=== PATIENT | male | born 1970 | race African-American/Black ===

== ENCOUNTER 2022-01-15 17:10 | Emergency (ER) | payer MEDICARE, SELFPAY ==
--- NOTE | ~2022-01-15 | XR_ITS ---
EXAMINATION: XR CHEST CLINICAL INFORMATION: New onset seizure. COMPARISON: Chest 07/13/2016. TECHNIQUE: Frontal view of the chest was obtained. FINDINGS: No significant abnormality is noted involving the heart, lungs, mediastinum, bony thorax or soft tissues. XR/XR chest 1V IMPRESSION: Unremarkable chest examination.
--- NOTE | ~2022-01-15 | CT_ITS ---
EXAMINATION: CT HEAD WITHOUT CONTRAST CLINICAL INFORMATION: New onset seizure COMPARISON: 07/13/2016 TECHNIQUE: Contiguous axial imaging was performed from the skull base to vertex without intravenous administration of contrast. This CT examination was performed using dose optimization techniques as appropriate, variously including the following: *Automated exposure control *Adjustment of mA and/or kV according to patient size (this includes techniques or standardized protocols for targeted exams where dose is matched to indication/reason for exam; i.e. extremities or head) *Use of iterative reconstruction technique DLP: 1470 mGy-cm FINDINGS: No intra-axial or extra-axial hemorrhage. No acute territorial infarct. Redemonstration of postsurgical changes along with chronic encephalomalacia of the left temporal lobe with expansion of the temporal and posterior horns of the left lateral ventricle. Chronic right frontoparietal infarct. Preservation of douglas-white matter differentiation. No mass, mass effect, or midline shift. No fracture. The mastoid air cells and visualized paranasal sinuses are clear. CT/CT head/brain wo con IMPRESSION: Chronic left temporal lobe infarction with encephalomalacia appears similar to the study dated 07/13/2016. Given the extent of the changes, the possibility of superimposed ischemia is difficult to exclude and MRI could be considered. Postsurgical changes of bitemporal craniotomies. There is a chronic right frontoparietal infarct.
--- NOTE | 2022-01-15 17:16 | ED.SEIZURE ---
HPI - Seizure General Chief Complaint: Stroke Stated Complaint: seizures Source: patient and EMS Mode of arrival: EMS Limitations: altered mental status History of Present Illness HPI Narrative: 51-year-old male presents via EMS for facial twitching, tonic clonic seizure activity, while at a [facility] facility. Patient presents via EMS, on transit from [facility] patient received 2 mg of IM Versed for seizure-like activity. MD complaint: seizure Onset (ago): hour(s) (Within the hour of arrival) Description of Episode: tonic-clonic movement -: second(s) Witnessed: Yes - by Bystander Trauma: No Seizure History: No Place: Home Possible Precipitating Event: none Associated symptoms: denies other symptoms Treatments prior to arrival: benzodiazepines Related Data Allergies Allergy/AdvReac Type Severity Reaction Status Date / Time No Known Allergies Allergy Unverified 06/17/20 19:09 [No Known Allergies*] Review of Systems Review of Systems: Constitutional: Positive seizure activity, No Fever, No Chills ENT/Mouth: No Ear Pain, No Hoarseness, No sore throat Eyes: No Eye Pain, No Swelling, No Redness, No Foreign Body Cardiovascular: No Chest Pain, No SOB Respiratory: No Cough, No Dyspnea Gastrointestinal: No Nausea, No Vomiting, No Diarrhea, No abdominal Pain Genitourinary: No Dysuria, No Hematuria Musculoskeletal: No joint pain, No Myalgias, No Joint Swelling Skin: No Skin lacerations, No rash Neuro: No Weakness, No Numbness, No Paresthesias, No Loss of Consciousness, No Dizziness, No Headache Psych: No Anxiety/Panic, No Depression Heme/Lymph: no easy bruising, no Lymphadenopathy Endocrine: No Polyuria, No Polydipsia Yes all other systems are reviewed and are negative FOR[facility]LY [facility] Past Medical History Attestation statement: The following information was validated with the patient. Source: old records reviewed Social History Social History Advance Directives: No Advance Directives Information Provided: No Physical Exam Vital Signs: Vital Signs: Last Vital Signs Temp 98.7 F 01/15/22 17:21 Pulse 95 01/15/22 22:52 Resp 14 01/15/22 22:52 BP 142/101 H 01/15/22 22:52 Pulse Ox 96 01/15/22 22:52 BMI result Body Mass Index 34.7 Appearance: Alert. Oriented X3. No acute distress. Appears postictal. Eyes: Pupils equal, round and reactive to light. ENT: Pharynx normal. Neck: Normal inspection. Neck supple. CVS: Normal heart rate and rhythm. Pulses normal. Respiratory: No respiratory distress. Breath sounds normal. Abdomen: Soft and nontender. Skin: Skin warm and dry. Normal skin color. Normal skin turgor. Extremities: No lower extremity edema. Moves all extremities against resistance. Right-sided weakness Neuro: No motor deficit. No sensory deficit. Cranial nerves 2-12 intact. Course Course Course Narrative: 51-year-old male presents via EMS from [facility] with tremors consistent with seizure activity. Patient was 2 mg of IM Versed while on transit for seizure activity. Does have history of stroke, encephalomalacia, alcohol-induced amnesia disorder Wernicke encephalopathy, aphasia, hypertension, history of epilepsy, glaucoma, constipation, hyperlipidemia depression, history TBI, type 2 diabetes. At the time of my examination patient is postictal and unable to follow directions. 17:29 sugars 78. Will order amp d5 18:28 lactic 2.6, Mag 1.3, will add 2 L of fluid and 2 g of Mag. At this time patient is following directions. Able to move all extremities without difficulty. Speaking. Sitting up. 19:40 CT scan of head is negative for acute findings requiring emergent intervention. Does show chronic left temporal lobe infarction with encephalomalacia. Postsurgical changes noted a bitemporal craniotomies with chronic right frontoparietal infarct. Patient does have a known seizure disorder I do not feel that MRI is emergent or needed at this time. 21:07 patient is eating without difficulty. Will be transported to [facility] by their facility. 2300 p.m. transportation not available for this patient. He will be boarding in this emergency department until morning. MDM - Seizure Differential Diagnosis Differential diagnosis: Likely intractable seizure disorder and new onset seizure Medical Records Attestation: I reviewed the patient's medical records. Lab Data Attestation: I reviewed the patient's lab results. Result diagrams: 01/15/22 17:47 01/15/22 17:46 Labs: Lab Results 01/15/22 01/15/22 01/15/22 Range/Units 17:29 17:46 17:46 WBC (4.8-10.8) X10*3/uL RBC (4.60-5.80) X10*6/uL Hgb (14.0-18.0) g/dl Hct (42.0-52.0) % MCV (80.0-98.0) fL MCH (27.0-33.0) pg MCHC (31.0-36.0) g/dl RDW (11.0-16.0) % Plt Count (160-400) X10*3/uL MPV (9.4-12.4) fL Immature Gran % (Auto) (0.0-0.4) % Neut % (Auto) (45-73) % Lymph % (Auto) (20-40) % [place] % (Auto) (2-11) % Eos % (Auto) (0-4) % Baso % (Auto) (0-2) % Lymph # (Auto) (1.2-4.9) X10*3/uL [place] # (Auto) (0.1-1.2) X10*3/uL Eos # (Auto) (0.0-0.4) X10*3/uL Baso # (Auto) (0.0-0.2) X10*3/uL Abs Immat Gran (auto) (0.00-0.03) X10*3/uL Absolute Neuts (auto) (2.0-8.3) x10*3/uL Absolute Nucleated RBC (0.0-0.012) X10*3/uL Nucleated RBC % (auto) (0.0-0.2) /100WBC APTT (24.1-38.0) SEC Sodium 140 (135-145) mmol/L Potassium 4.8 (3.3-5.1) mmol/L Chloride 103 (96-108) mmol/L Carbon Dioxide 22 (22-29) mmol/L Anion Gap 20 (12-20) BUN 9 (9-16) mg/dL Creatinine 0.99 (0.5-1.4) mg/dL Estim Creat Clear Calc 85.7 Estimated GFR > 60 POC Glucose 78 (60-115) mg/dL Random Glucose 68 (60-115) mg/dL Lactic Acid 2.6 H* (0.5-2.0) mmol/L Lactic Acid F/U @ 2Hr (0.5-2.0) mmol/L Lactic Acid F/U @ 4Hr (0.5-2.0) mmol/L Calcium 9.5 (8.4-10.2) mg/dL Magnesium 1.3 L* (1.6-2.6) mg/dL Total Bilirubin 0.3 (0.0-1.0) mg/dL Direct Bilirubin < 0.2 (0.0-0.5) mg/dL AST 22 (5-37) U/L ALT 29 (0-40) U/L Alkaline Phosphatase 69 (39-117) U/L Total Creatine Kinase 171 (38-174) U/L Troponin I High Sens (<3.5-35.0) ng/L Total Protein 7.4 (6.5-8.0) g/dL Albumin 4.0 (3.5-5.0) g/dL Lipase 8 (8-78) U/L Urine Color Urine Appearance Urine pH (5.0-8.0) Ur Specific [place] (1.005-1.025) Urine Protein (NEG-TRACE) MG/DL Urine Glucose (UA) (NEG) MG/DL Urine Ketones (NEG) MG/DL Urine Blood (NEG) Urine Nitrite (NEG) Ur Leukocyte Esterase (NEG) Urine Opiates Screen (Not Detect) Urine Fentanyl Screen (Not Detect) Ur Barbiturates Screen (Not Detect) Ur Phencyclidine Scrn (Not Detect) Ur Amphetamines Screen (Not Detect) U Benzodiazepines Scrn (Not Detect) Urine Cocaine Screen (Not Detect) U Marijuana (THC) Screen (Not Detect) Ethyl Alcohol mg/dL Influenza Type A (PCR) (Negative) Influenza Type B (PCR) (Negative) RSV RNA Qual (PCR) (Negative) SARS-CoV-2 RNA (RT-PCR) (Negative) 01/15/22 01/15/22 01/15/22 Range/Units 17:46 17:46 17:46 WBC (4.8-10.8) X10*3/uL RBC (4.60-5.80) X10*6/uL Hgb (14.0-18.0) g/dl Hct (42.0-52.0) % MCV (80.0-98.0) fL MCH (27.0-33.0) pg MCHC (31.0-36.0) g/dl RDW (11.0-16.0) % Plt Count (160-400) X10*3/uL MPV (9.4-12.4) fL Immature Gran % (Auto) (0.0-0.4) % Neut % (Auto) (45-73) % Lymph % (Auto) (20-40) % [place] % (Auto) (2-11) % Eos % (Auto) (0-4) % Baso % (Auto) (0-2) % Lymph # (Auto) (1.2-4.9) X10*3/uL [place] # (Auto) (0.1-1.2) X10*3/uL Eos # (Auto) (0.0-0.4) X10*3/uL Baso # (Auto) (0.0-0.2) X10*3/uL Abs Immat Gran (auto) (0.00-0.03) X10*3/uL Absolute Neuts (auto) (2.0-8.3) x10*3/uL Absolute Nucleated RBC (0.0-0.012) X10*3/uL Nucleated RBC % (auto) (0.0-0.2) /100WBC APTT (24.1-38.0) SEC Sodium (135-145) mmol/L Potassium (3.3-5.1) mmol/L Chloride (96-108) mmol/L Carbon Dioxide (22-29) mmol/L Anion Gap (12-20) BUN (9-16) mg/dL Creatinine (0.5-1.4) mg/dL Estim Creat Clear Calc Estimated GFR POC Glucose (60-115) mg/dL Random Glucose (60-115) mg/dL Lactic Acid (0.5-2.0) mmol/L Lactic Acid F/U @ 2Hr (0.5-2.0) mmol/L Lactic Acid F/U @ 4Hr (0.5-2.0) mmol/L Calcium (8.4-10.2) mg/dL Magnesium (1.6-2.6) mg/dL Total Bilirubin (0.0-1.0) mg/dL Direct Bilirubin (0.0-0.5) mg/dL AST (5-37) U/L ALT (0-40) U/L Alkaline Phosphatase (39-117) U/L Total Creatine Kinase (38-174) U/L Troponin I High Sens < 3.5 (<3.5-35.0) ng/L Total Protein (6.5-8.0) g/dL Albumin (3.5-5.0) g/dL Lipase (8-78) U/L Urine Color Urine Appearance Urine pH (5.0-8.0) Ur Specific [place] (1.005-1.025) Urine Protein (NEG-TRACE) MG/DL Urine Glucose (UA) (NEG) MG/DL Urine Ketones (NEG) MG/DL Urine Blood (NEG) Urine Nitrite (NEG) Ur Leukocyte Esterase (NEG) Urine Opiates Screen (Not Detect) Urine Fentanyl Screen (Not Detect) Ur Barbiturates Screen (Not Detect) Ur Phencyclidine Scrn (Not Detect) Ur Amphetamines Screen (Not Detect) U Benzodiazepines Scrn (Not Detect) Urine Cocaine Screen (Not Detect) U Marijuana (THC) Screen (Not Detect) Ethyl Alcohol < 10 mg/dL Influenza Type A (PCR) NEGATIVE (Negative) Influenza Type B (PCR) NEGATIVE (Negative) RSV RNA Qual (PCR) NEGATIVE (Negative) SARS-CoV-2 RNA (RT-PCR) NEGATIVE (Negative) 01/15/22 01/15/22 01/15/22 Range/Units 17:47 17:47 18:47 WBC 12.0 H (4.8-10.8) X10*3/uL RBC 4.62 (4.60-5.80) X10*6/uL Hgb 11.6 L (14.0-18.0) g/dl Hct 35.6 L (42.0-52.0) % MCV 77.1 L (80.0-98.0) fL MCH 25.1 L (27.0-33.0) pg MCHC 32.6 (31.0-36.0) g/dl RDW 13.5 (11.0-16.0) % Plt Count 216 (160-400) X10*3/uL MPV 12.0 (9.4-12.4) fL Immature Gran % (Auto) 0.2 (0.0-0.4) % Neut % (Auto) 40.1 L (45-73) % Lymph % (Auto) 51.6 H (20-40) % [place] % (Auto) 6.4 (2-11) % Eos % (Auto) 1.5 (0-4) % Baso % (Auto) 0.2 (0-2) % Lymph # (Auto) 6.2 H (1.2-4.9) X10*3/uL [place] # (Auto) 0.8 (0.1-1.2) X10*3/uL Eos # (Auto) 0.2 (0.0-0.4) X10*3/uL Baso # (Auto) 0.0 (0.0-0.2) X10*3/uL Abs Immat Gran (auto) 0.02 (0.00-0.03) X10*3/uL Absolute Neuts (auto) 4.8 (2.0-8.3) x10*3/uL Absolute Nucleated RBC 0.000 (0.0-0.012) X10*3/uL Nucleated RBC % (auto) 0.0 (0.0-0.2) /100WBC APTT 40.5 H (24.1-38.0) SEC Sodium (135-145) mmol/L Potassium (3.3-5.1) mmol/L Chloride (96-108) mmol/L Carbon Dioxide (22-29) mmol/L Anion Gap (12-20) BUN (9-16) mg/dL Creatinine (0.5-1.4) mg/dL Estim Creat Clear Calc Estimated GFR POC Glucose 107 (60-115) mg/dL Random Glucose (60-115) mg/dL Lactic Acid (0.5-2.0) mmol/L Lactic Acid F/U @ 2Hr (0.5-2.0) mmol/L Lactic Acid F/U @ 4Hr (0.5-2.0) mmol/L Calcium (8.4-10.2) mg/dL Magnesium (1.6-2.6) mg/dL Total Bilirubin (0.0-1.0) mg/dL Direct Bilirubin (0.0-0.5) mg/dL AST (5-37) U/L ALT (0-40) U/L Alkaline Phosphatase (39-117) U/L Total Creatine Kinase (38-174) U/L Troponin I High Sens (<3.5-35.0) ng/L Total Protein (6.5-8.0) g/dL Albumin (3.5-5.0) g/dL Lipase (8-78) U/L Urine Color Urine Appearance Urine pH (5.0-8.0) Ur Specific [place] (1.005-1.025) Urine Protein (NEG-TRACE) MG/DL Urine Glucose (UA) (NEG) MG/DL Urine Ketones (NEG) MG/DL Urine Blood (NEG) Urine Nitrite (NEG) Ur Leukocyte Esterase (NEG) Urine Opiates Screen (Not Detect) Urine Fentanyl Screen (Not Detect) Ur Barbiturates Screen (Not Detect) Ur Phencyclidine Scrn (Not Detect) Ur Amphetamines Screen (Not Detect) U Benzodiazepines Scrn (Not Detect) Urine Cocaine Screen (Not Detect) U Marijuana (THC) Screen (Not Detect) Ethyl Alcohol mg/dL Influenza Type A (PCR) (Negative) Influenza Type B (PCR) (Negative) RSV RNA Qual (PCR) (Negative) SARS-CoV-2 RNA (RT-PCR) (Negative) 01/15/22 01/15/22 01/15/22 Range/Units 19:41 19:41 20:51 WBC (4.8-10.8) X10*3/uL RBC (4.60-5.80) X10*6/uL Hgb (14.0-18.0) g/dl Hct (42.0-52.0) % MCV (80.0-98.0) fL MCH (27.0-33.0) pg MCHC (31.0-36.0) g/dl RDW (11.0-16.0) % Plt Count (160-400) X10*3/uL MPV (9.4-12.4) fL Immature Gran % (Auto) (0.0-0.4) % Neut % (Auto) (45-73) % Lymph % (Auto) (20-40) % [place] % (Auto) (2-11) % Eos % (Auto) (0-4) % Baso % (Auto) (0-2) % Lymph # (Auto) (1.2-4.9) X10*3/uL [place] # (Auto) (0.1-1.2) X10*3/uL Eos # (Auto) (0.0-0.4) X10*3/uL Baso # (Auto) (0.0-0.2) X10*3/uL Abs Immat Gran (auto) (0.00-0.03) X10*3/uL Absolute Neuts (auto) (2.0-8.3) x10*3/uL Absolute Nucleated RBC (0.0-0.012) X10*3/uL Nucleated RBC % (auto) (0.0-0.2) /100WBC APTT (24.1-38.0) SEC Sodium (135-145) mmol/L Potassium (3.3-5.1) mmol/L Chloride (96-108) mmol/L Carbon Dioxide (22-29) mmol/L Anion Gap (12-20) BUN (9-16) mg/dL Creatinine (0.5-1.4) mg/dL Estim Creat Clear Calc Estimated GFR POC Glucose (60-115) mg/dL Random Glucose (60-115) mg/dL Lactic Acid (0.5-2.0) mmol/L Lactic Acid F/U @ 2Hr 3.3 H* (0.5-2.0) mmol/L Lactic Acid F/U @ 4Hr (0.5-2.0) mmol/L Calcium (8.4-10.2) mg/dL Magnesium (1.6-2.6) mg/dL Total Bilirubin (0.0-1.0) mg/dL Direct Bilirubin (0.0-0.5) mg/dL AST (5-37) U/L ALT (0-40) U/L Alkaline Phosphatase (39-117) U/L Total Creatine Kinase (38-174) U/L Troponin I High Sens (<3.5-35.0) ng/L Total Protein (6.5-8.0) g/dL Albumin (3.5-5.0) g/dL Lipase (8-78) U/L Urine Color YELLOW Urine Appearance CLEAR Urine pH 5.5 (5.0-8.0) Ur Specific [place] 1.010 (1.005-1.025) Urine Protein NEG (NEG-TRACE) MG/DL Urine Glucose (UA) 100 H (NEG) MG/DL Urine Ketones NEG (NEG) MG/DL Urine Blood NEG (NEG) Urine Nitrite NEG (NEG) Ur Leukocyte Esterase NEG (NEG) Urine Opiates Screen Not Detected (Not Detect) Urine Fentanyl Screen Not Detected (Not Detect) Ur Barbiturates Screen Not Detected (Not Detect) Ur Phencyclidine Scrn Not Detected (Not Detect) Ur Amphetamines Screen Not Detected (Not Detect) U Benzodiazepines Scrn POSITIVE H (Not Detect) Urine Cocaine Screen Not Detected (Not Detect) U Marijuana (THC) Screen Not Detected (Not Detect) Ethyl Alcohol mg/dL Influenza Type A (PCR) (Negative) Influenza Type B (PCR) (Negative) RSV RNA Qual (PCR) (Negative) SARS-CoV-2 RNA (RT-PCR) (Negative) 01/15/22 Range/Units 23:19 WBC (4.8-10.8) X10*3/uL RBC (4.60-5.80) X10*6/uL Hgb (14.0-18.0) g/dl Hct (42.0-52.0) % MCV (80.0-98.0) fL MCH (27.0-33.0) pg MCHC (31.0-36.0) g/dl RDW (11.0-16.0) % Plt Count (160-400) X10*3/uL MPV (9.4-12.4) fL Immature Gran % (Auto) (0.0-0.4) % Neut % (Auto) (45-73) % Lymph % (Auto) (20-40) % [place] % (Auto) (2-11) % Eos % (Auto) (0-4) % Baso % (Auto) (0-2) % Lymph # (Auto) (1.2-4.9) X10*3/uL [place] # (Auto) (0.1-1.2) X10*3/uL Eos # (Auto) (0.0-0.4) X10*3/uL Baso # (Auto) (0.0-0.2) X10*3/uL Abs Immat Gran (auto) (0.00-0.03) X10*3/uL Absolute Neuts (auto) (2.0-8.3) x10*3/uL Absolute Nucleated RBC (0.0-0.012) X10*3/uL Nucleated RBC % (auto) (0.0-0.2) /100WBC APTT (24.1-38.0) SEC Sodium (135-145) mmol/L Potassium (3.3-5.1) mmol/L Chloride (96-108) mmol/L Carbon Dioxide (22-29) mmol/L Anion Gap (12-20) BUN (9-16) mg/dL Creatinine (0.5-1.4) mg/dL Estim Creat Clear Calc Estimated GFR POC Glucose (60-115) mg/dL Random Glucose (60-115) mg/dL Lactic Acid (0.5-2.0) mmol/L Lactic Acid F/U @ 2Hr (0.5-2.0) mmol/L Lactic Acid F/U @ 4Hr 3.2 H* (0.5-2.0) mmol/L Calcium (8.4-10.2) mg/dL Magnesium (1.6-2.6) mg/dL Total Bilirubin (0.0-1.0) mg/dL Direct Bilirubin (0.0-0.5) mg/dL AST (5-37) U/L ALT (0-40) U/L Alkaline Phosphatase (39-117) U/L Total Creatine Kinase (38-174) U/L Troponin I High Sens (<3.5-35.0) ng/L Total Protein (6.5-8.0) g/dL Albumin (3.5-5.0) g/dL Lipase (8-78) U/L Urine Color Urine Appearance Urine pH (5.0-8.0) Ur Specific [place] (1.005-1.025) Urine Protein (NEG-TRACE) MG/DL Urine Glucose (UA) (NEG) MG/DL Urine Ketones (NEG) MG/DL Urine Blood (NEG) Urine Nitrite (NEG) Ur Leukocyte Esterase (NEG) Urine Opiates Screen (Not Detect) Urine Fentanyl Screen (Not Detect) Ur Barbiturates Screen (Not Detect) Ur Phencyclidine Scrn (Not Detect) Ur Amphetamines Screen (Not Detect) U Benzodiazepines Scrn (Not Detect) Urine Cocaine Screen (Not Detect) U Marijuana (THC) Screen (Not Detect) Ethyl Alcohol mg/dL Influenza Type A (PCR) (Negative) Influenza Type B (PCR) (Negative) RSV RNA Qual (PCR) (Negative) SARS-CoV-2 RNA (RT-PCR) (Negative) Imaging Data CT head: Attestation: I personally reviewed and interpreted this imaging study as follows: Radiologist's impression: FINDINGS: No intra-axial or extra-axial hemorrhage. No acute territorial infarct. Redemonstration of postsurgical changes along with chronic encephalomalacia of the left temporal lobe with expansion of the temporal and posterior horns of the left lateral ventricle. Chronic right frontoparietal infarct. Preservation of douglas-white matter differentiation. No mass, mass effect, or midline shift. No fracture. The mastoid air cells and visualized paranasal sinuses are clear. ? CT/CT head/brain wo con IMPRESSION: Chronic left temporal lobe infarction with encephalomalacia appears similar to the study dated 07/13/2016. Given the extent of the changes, the possibility of superimposed ischemia is difficult to exclude and MRI could be considered. ? Postsurgical changes of bitemporal craniotomies. There is a chronic right frontoparietal infarct. Chest x-ray: Attestation: I personally reviewed and interpreted this imaging study as follows: Radiologist's impression: EXAMINATION: XR CHEST CLINICAL INFORMATION: New onset seizure. COMPARISON: Chest 07/13/2016. TECHNIQUE: Frontal view of the chest was obtained. FINDINGS: No significant abnormality is noted involving the heart, lungs, mediastinum, bony thorax or soft tissues. XR/XR chest 1V IMPRESSION: Unremarkable chest examination. ECG Data Attestation: I personally reviewed and interpreted this ECG as follows: ECG interpretation date: 01/15/22 ECG interpretation time: 17:20 Prior ECG tracings: available for review Interpretation: Vent. rate 107 BPM TX interval 172 ms QRS duration 74 ms QT/QTc 312/416 ms P-R-T axes 39 7 47 Sinus tachycardia Nonspecific T wave abnormality Abnormal ECG When compared with ECG of 14-JUL-2016 12:23, T wave inversion no longer evident in Anterior leads QT has lengthened Discharge Plan Discharge Clinical Impression: Tremors of nervous system, Hypomagnesemia Patient Disposition: Xfer SNF Transfer Details: [facility] Instructions: Hypomagnesemia (ED), Tremors (ED) Additional Instructions: You were evaluated for tremors which could possibly be seizure disorder. Please follow-up with Neurology as an outpatient. CT scan of head does not show any acute findings. Does shows chronic left temporal lobe infarction with encephalomalacia similar to the study dated back on 07/13/2016. Magnesium levels were 1.3. Repleted with 2 g of magnesium IV. Please repeat magnesium level in 1 week. Your lactic acid was 2.6, we did give the 2 L of fluid, resulting in a normal lactic acid. Urinalysis is negative. Influenza COVID and RSV are negative. Continue all medications as prescribed. Thank you for choosing this emergency department for evaluation. Please follow-up with primary care physician as needed. Return to the emergency department for any new, concerning, or worsening symptoms.
--- NOTE | 2022-01-15 17:18 | ECG_ITS ---
Test Reason : SEIZURE Blood Pressure : / mmHG Vent. Rate : 107 BPM Atrial Rate : 107 BPM P-R Int : 172 ms QRS Dur : 074 ms QT Int : 312 ms P-R-T Axes : 039 007 047 degrees QTc Int : 416 ms Sinus tachycardia Nonspecific T wave abnormality Abnormal ECG When compared with ECG of 14-JUL-2016 12:23, T wave inversion no longer evident in Anterior leads QT has lengthened Referred By: Shonda Kendall Electronically Signed By:CHECO AYALA MD
[2022-01-15 17:21] VITALS: BP 155/101; BP 230/130; PULSE 105; PULSE 107; RESP 18; TEMP 37.1; O2SAT 96; O2SAT 97; BMI 34.7
[2022-01-15 17:33] LABS: Glucose, Whole Blood 78 mg/dL (60-115)
[2022-01-15 17:52] LABS: MANUAL DIFF FLAG NO
[2022-01-15] MEDS: LORazepam 2 MG/ML VIAL 1 MG IVPUSH (17:52)
[2022-01-15] MEDS: Dextrose 50 % 25 GM/50 ML SYRINGE IVPUSH (17:53)
[2022-01-15] MEDS: 0.9 % Sodium Chloride 1,000 ML 999 ML IVCONT ×2 (17:53→18:47)
[2022-01-15 17:58] LABS: Basophils Percent Auto 0.2 % (0-2); Eosinophils Absolute Auto 0.2 X10*3/uL (0.0-0.4); Eosinophils Percent Auto 1.5 % (0-4); Hematocrit 35.6 % (42.0-52.0); Hemoglobin 11.6 g/dl (14.0-18.0); Imm Gran Abs Auto 0.02 X10*3/uL (0.00-0.03); Imm Gran Pct Auto 0.2 % (0.0-0.4); Lymphocytes Percent Auto 51.6 % (20-40); Mean Corpuscular HGB Conc 32.6 g/dl (31.0-36.0); Mean Corpuscular Hemoglobin 25.1 pg (27.0-33.0); Mean Corpuscular Volume 77.1 fL (80.0-98.0); Monocytes Absolute Auto 0.8 X10*3/uL (0.1-1.2); Monocytes Percent Auto 6.4 % (2-11); Neutrophils Absolute Auto 4.8 x10*3/uL (2.0-8.3); Neutrophils Percent Auto 40.1 % (45-73); Platelet Count 216 X10*3/uL (160-400); Red Blood Count 4.62 X10*6/uL (4.60-5.80); Red Cell Distribution Width 13.5 % (11.0-16.0); SCAN SMEAR FLAG 1
[2022-01-15 17:59] LABS: Lymphocytes Absolute Auto 6.2 X10*3/uL (1.2-4.9)
[2022-01-15 18:02] LABS: Partial Thromboplastin Time 40.5 SEC (24.1-38.0)
[2022-01-15 18:09] LABS: Ethanol < 10 mg/dL
[2022-01-15 18:19] LABS: Troponin-I High Sensitivity < 3.5 ng/L (<3.5-35.0)
[2022-01-15 18:25] LABS: Alanine Aminotransferase 29 U/L (0-40); Alkaline Phosphatase 69 U/L (39-117); Anion Gap 20 (12-20); Aspartate Amino Transferase 22 U/L (5-37); Bilirubin Direct < 0.2 mg/dL (0.0-0.5); Bilirubin Total 0.3 mg/dL (0.0-1.0); Blood Urea Nitrogen 9 mg/dL (9-16); Calcium 9.5 mg/dL (8.4-10.2); Carbon Dioxide 22 mmol/L (22-29); Chloride 103 mmol/L (96-108); Creatinine Clr Calc Pharmacy 85.7; Estimated Glomerular Filt Rate > 60; Glucose Random 68 mg/dL (60-115); Lactic Acid 2.6 mmol/L (0.5-2.0); Lipase 8 U/L (8-78); Magnesium 1.3 mg/dL (1.6-2.6); Potassium 4.8 mmol/L (3.3-5.1); Sodium 140 mmol/L (135-145); Total Protein 7.4 g/dL (6.5-8.0)
[2022-01-15 18:35] LABS: Influenza A PCR NEGATIVE (Negative); Influenza B PCR NEGATIVE (Negative); Resp Syncy Virus RNA Qual PCR NEGATIVE (Negative); SARS COV2 PCR INHOUSE NEGATIVE (Negative)
[2022-01-15] MEDS: Magnesium Sulfate/H2O 2 GM/50 ML PIGGYBACK IV (18:45)
[2022-01-15 18:52] LABS: Glucose, Whole Blood 107 mg/dL (60-115)
[2022-01-15 19:47] LABS: Appearance Urine CLEAR; Color Urine YELLOW; Glucose Urine UA 100 MG/DL (NEG); Leukocyte Esterase Urine NEG (NEG); Nitrite Urine NEG (NEG); PH 5.5 (5.0-8.0); Urine Blood NEG (NEG); Urine Ketones NEG (NEG); Urine Protein NEG (NEG-TRACE)
[2022-01-15 20:02] LABS: Amphetamine Screen Urine Not Detected (Not Detect); Barbiturates, Urine Not Detected (Not Detect); Benzodiazepines Screen Urine POSITIVE (Not Detect); Cannabinoid Screen Urine Not Detected (Not Detect); Cocaine Screen Urine Not Detected (Not Detect); Fentanyl, urine Not Detected (Not Detect); Opiate Screen Urine Not Detected (Not Detect); Phencyclidine Screen Urine Not Detected (Not Detect)
[2022-01-15 20:04] LABS: Reflex Lactate? Lactic Acid Added
--- NOTE | 2022-01-15 20:25 | PC.NURSE ---
Patient arrived via ambulance right side of face twitching per ambulance he had a tonic/clonic seizure in ambulance. Once patient was given iv ativan twitching subsided.
[2022-01-15 21:09] LABS: ~Lactic Acid-LAB USE ONLY 3.3 mmol/L (0.5-2.0)
[2022-01-15 22:52] VITALS: BP 142/101; PULSE 95; RESP 14; O2SAT 96
[2022-01-15 22:54] LABS: Reflex Lactate? 2 Y
[2022-01-15 23:40] LABS: ~Lactic Acid-LAB USE ONLY 3.2 mmol/L (0.5-2.0)
[2022-01-16 06:45] VITALS: BP 154/94; PULSE 91; RESP 16; TEMP 36.7; O2SAT 97
[2022-01-16 07:31] VITALS: BP 156/93; PULSE 90; RESP 17; TEMP 36.8; O2SAT 95
[2022-01-16 08:34] VITALS: BP 147/85; PULSE 98; RESP 18; O2SAT 97
--- NOTE | 2022-01-16 09:03 | PC.NURSE ---
anurag (hand turner at [facility]) called c and rn to rn report given. pt transfered to facility via ambulance.
[2022-01-16 12:11] LABS: Prolactin 39.9 ng/mL (2.0-18.0)
== END 2022-01-16 09:05 | disposition skilled nursing facility (03) ==
PROVIDERS: Nurse Practitioner Family; Emergency Provider Emergency Medicine Emergency Medical Services
DX: G25.2 Other specified forms of tremor (principal); E83.42 Hypomagnesemia; I10 Essential (primary) hypertension; E11.9 Type 2 diabetes mellitus without complications; Z86.73 Personal history of transient ischemic attack (TIA), and cerebral infarction without residual deficits; Z20.822 Contact with and (suspected) exposure to COVID-19
CPT/HCPCS: 0241U; 36415; 70450; 71045; 80048; 80076; 80307; 81003; 82077; 82550; 82947; 83605; 83690; 83735; 84146; 84484; 85025; 85730; 87040; 93005; 96361; 96365; 96366; 96375; 99285; J2060; J3475

== ENCOUNTER 2024-07-08 11:59 | Outpatient (AMB) | payer MEDICARE, SELFPAY ==
[2024-07-08 12:13] VITALS: BP 132/92; PULSE 80; O2SAT 96; BMI 32.6
--- NOTE | 2024-07-08 12:13 | MHC.OFFVIS ---
Vital Signs 07/08/24 12:13 Height 5 ft 2 in Weight 178 lb 2.136 oz BMI 32.6 BP 132/92 H Blood Pressure Location Lt brachial Position Sitting Pulse 80 Pulse Source Pulse Oximeter Pulse Oximetry (%) 96 Oxygen Delivery Method Room Air Intake Visit Reasons: colo screening Intake Note: Pepito presents in office today for a scheduled colo consult. CC; Pt reports that they are doing well at the moment, no GI sx reported. Pt denies any previous hx of colo. Pt denies any pertinent family hx. PCP recommended colo based on age concerns. Pt has AIR CARRIER INSPECTOR with them today that presents necessary physician consult forms to be completed by POWER TECHNICIAN. Ivory Carver Required: No Accompanied by: Other Relationship Allergies No Known Allergies [No Known Allergies*] Allergy (Verified 07/08/24 12:13) HPI HPI colo screening: Details: 54-YEAR-OLD male here for preprocedural meeting to discuss a screening colonoscopy. He is referred by [facility] [place] . PMX History of alcoholism Epilepsy Traumatic brain injury Hypertension High cholesterol Diabetes Hypothyroid Pre glaucoma Aphasia Constipation GERD * SURGICAL HISTORY * ALLERGIES:NKDA * PredicSis LABS: none TODAY'S VISIT This will be his first colonoscopy. He does not know much about his FHX only that his parents are alive and well. He does not know any of his own surgical or allergy history. Staff with him is not helpful. It is unknown whether there are any prior surgeries or any trouble with anesthesia or sedation in the past It is not completely certain if he has any history of infectious diseases It is completely unknown of his any family history of colon cancer or polyps. [facility] Medical History (Updated 07/08/24 @ 12:20 by MAKENNA Ferrer) Constipation Gastroduodenitis without bleeding Anemia Hyperlipidemia Traumatic brain injury Epilepsy Alcohol use Diabetes Social History (Updated 07/08/24 @ 12:21 by MAKENNA Ferrer) Alcohol intake: unknown Comment: EToH abuse hx Patient Tobacco Use Status: Never used Tobacco Review of Systems Const Denies fatigue, Denies fever(s), Denies night sweats, Denies poor appetite and Denies weight loss ENT Reports Normal hearing present, Denies dysphagia, Denies odynophagia, Denies throat swelling and Denies tongue swelling Card Reports no additional complaints Resp Reports no additional complaints GI Details: Denies abdominal pain, Denies melena, Denies bloating, Denies hematochezia, Denies constipation, Denies GI cramping, Denies dysphagia, Denies excessive flatus, Denies early satiety, Denies heartburn, Denies diarrhea, Denies nausea, Denies odynophagia, Denies vomiting and Denies hematemesis Skin/Breast Denies pruritus, Denies lesions, Denies rash and Denies jaundice Neuro Reports Normal hearing present, Denies Abnormal speech present, Reports memory loss and Reports convulsions Psych Reports memory loss Endo Denies fatigue Aller/Immun Denies throat swelling and Denies tongue swelling Physical Exam Vital Signs: Last Vital Signs Pulse 80 07/08/24 12:13 BP 132/92 H 07/08/24 12:13 Pulse Ox 96 07/08/24 12:13 Oxygen Delivery Method Room Air 07/08/24 12:13 BMI result Body Mass Index 32.6 Const General: cooperative, no acute distress, well developed and well groomed Nutritional Appearance: well nourished and obese Orientation/consciousness: oriented to person, oriented to place and oriented to time Limitations: No language barrier and other limitations HEENT Head: Yes normocephalic and Yes atraumatic Eyes General: appearance normal, both eyes and all related structures Pupils: Equal, round and reactive pupils present Neck Neck: Yes normal visual inspection and Yes no lymphadenopathy Thyroid: Thyroid normal Resp Effort & Inspection: normal respiratory effort and able to speak in complete sentences Auscultation: clear to auscultation bilaterally Cardio Rate: regular rate Rhythm: regular rhythm Heart sounds: Normal, physiologic split S2 sound present Peripheral pulses: radial pulses present and posterior tibial pulses present GI Inspection: No distended, No Abdominal panniculus present and Yes obesity Palpation (GI): Soft to palpation, nontender, no guarding, not rigid and No hepatosplenomegaly present Percussion: Yes normal to percussion Auscultation: normal bowel sounds Rectal Exam - Male: Yes deferred Abdomen image: 1. surgical scars 2. Skin General skin exam: no rashes or lesions noted, turgor normal, skin not dry, no jaundice, No spider nevi and no striae Rashes: no rashes Nails: normal Neuro General: oriented to person, oriented to place and oriented to time Cranial nerves: Yes Equal, round and reactive pupils present and Yes Normal hearing present Speech: No Abnormal speech present Extrem General: Yes normal to inspection, No clubbing, No cyanosis and No edema Psych Appearance: other Mental Status: other Speech and movement: Slowed speech present (Psych) Affect: normal affect Attitude: cooperative Thought process: not confabulating and Impoverished thought process present Thought content: Normal thought content present Insight: Poor insight present (Psych) Judgement: Poor judgement present (Psych) Assessment & Plan Assessment & Plan (1) Pre-op examination: Code(s): Z01.818 - Encounter for other preprocedural examination Category: Medical (2) Seizure disorder: Code(s): G40.909 - Epilepsy, unspecified, not intractable, without status epilepticus Category: Medical (3) Traumatic brain injury: Code(s): S06.9XAA - Unspecified intracranial injury with loss of consciousness status unknown, initial encounter Category: Medical (4) Aphasia: Code(s): R47.01 - Aphasia Category: Medical Plan This will be his first colonoscopy. He does not know much about his FHX only that his parents are alive and well. He does not know any of his own surgical or allergy history. Staff with him is not helpful. It is unknown whether there are any prior surgeries or any trouble with anesthesia or sedation in the past It is not completely certain if he has any history of infectious diseases It is completely unknown of his any family history of colon cancer or polyps. Orders: Orders Comprehensive Met. Panel 07/08/24 Z.818 - Encounter for other preprocedural examination Complete Blood Count Auto Diff 07/08/24 Z.818 - Encounter for other preprocedural examination Colonoscopy - GI Use Only 07/08/24 Z01.818 - Encounter for other preprocedural examination Medications: New bisacodyl (Dulcolax (bisacodyl)) 10 mg (2 x 5 mg) PO BEDTIME 4 tabs 0RF 2 days peg 3350-electrolytes 236-22.74-6.74 -5.86 gram (Golytely) until fecal effluent is clear; do not exceed a total volume of 2,000 mL 240 mL PO Q10M 4,000 mL 0RF 1 day Z12.11 - Encounter for screening for malignant neoplasm of colon Coding Level of Care Code New Pt Level 3 (52351) Diagnoses Pre-op examination Z01.818 Seizure disorder G40.909 Traumatic brain injury S06.9XAA Aphasia R47.01
== END 2024-07-08 13:00 | disposition home or self-care (01) ==
PROVIDERS: Visit Provider Nurse Practitioner
DX: Z01.818 Encounter for other preprocedural examination (principal); Z12.11 Encounter for screening for malignant neoplasm of colon; G40.909 Epilepsy, unspecified, not intractable, without status epilepticus; S06.9XAA Unspecified intracranial injury with loss of consciousness status unknown, initial encounter; R47.01 Aphasia
CPT/HCPCS: 99024

== ENCOUNTER 2024-07-08 11:59 | Outpatient (REF) | payer MEDICARE, SELFPAY ==
[2024-07-08 13:32] LABS: MANUAL DIFF FLAG NO
[2024-07-08 14:20] LABS: Basophils Percent Auto 0.4 % (0-2); Eosinophils Absolute Auto 0.1 X10*3/uL (0.0-0.4); Hematocrit 38.9 % (42.0-52.0); Hemoglobin 12.7 g/dl (14.0-18.0); Imm Gran Abs Auto 0.02 X10*3/uL (0.00-0.03); Imm Gran Pct Auto 0.2 % (0.0-0.4); Lymphocytes Absolute Auto 4.5 X10*3/uL (1.2-4.9); Lymphocytes Percent Auto 43.7 % (20-40); Mean Corpuscular HGB Conc 32.6 g/dl (31.0-36.0); Mean Corpuscular Hemoglobin 25.6 pg (27.0-33.0); Mean Corpuscular Volume 78.3 fL (80.0-98.0); Mean Platelet Volume 12.3 fL (9.4-12.4); Monocytes Absolute Auto 0.6 X10*3/uL (0.1-1.2); Monocytes Percent Auto 5.5 % (2-11); Neutrophils Percent Auto 49.2 % (45-73); Platelet Count 211 X10*3/uL (160-400); Red Blood Count 4.97 X10*6/uL (4.60-5.80); Red Cell Distribution Width 13.8 % (11.0-16.0); White Blood Count 10.2 X10*3/uL (4.8-10.8)
[2024-07-08 14:54] LABS: Alanine Aminotransferase 44 U/L (0-40); Albumin Level 4.3 g/dL (3.5-5.0); Alkaline Phosphatase 75 U/L (39-117); Anion Gap 12 (12-20); Aspartate Amino Transferase 29 U/L (5-37); Bilirubin Total 0.3 mg/dL (0.0-1.0); Blood Urea Nitrogen 16 mg/dL (9-16); Calcium 9.6 mg/dL (8.4-10.2); Carbon Dioxide 27 mmol/L (22-29); Chloride 107 mmol/L (96-108); Estimated Glomerular Filt Rate > 60; Glucose Random 47 mg/dL (60-115); Potassium 4.7 mmol/L (3.3-5.1); Sodium 141 mmol/L (135-145); Total Protein 7.7 g/dL (6.5-8.0)
== END 2024-07-08 12:00 | disposition home or self-care (01) ==
LOC: HO.LAB 11:59
PROVIDERS: PCP Hospitalist; Visit Provider Nurse Practitioner
DX: Z01.812 Encounter for preprocedural laboratory examination (principal)
CPT/HCPCS: 36415; 80053; 85025

== ENCOUNTER 2024-11-04 08:58 | Day surgery (SDC) | payer MEDICARE, SELFPAY ==
[2024-10-31 09:47] VITALS: BMI 32.6
--- NOTE | 2024-11-03 09:35 | HO.ANESPROP2 ---
HPI - Anesthesia Eval Consult details Narrative: 54yo M for Colonoscopy [facility] resident. TBI Anesthesia Pre-Procedure Meds Is the patient on any of the following meds?: GLP1/DPP4 PMFSH Active Problems Active Problems: All Active Problems Pre-op examination (Acute) GERD (gastroesophageal reflux disease) (Acute) Aphasia (Acute) Hypothyroid (Acute) High cholesterol (Acute) Hypertension (Acute) Seizure disorder (Acute) History of alcoholism (Acute) Constipation (Acute) Diabetes (Acute) Traumatic brain injury (Acute) Past Medical History Medical History (Updated 10/31/24 @ 14:17 by Charleen Worley RN) Thiamine deficiency, unspecified Preglaucoma, unspecified, bilateral Disorder of urea cycle metabolism, unspecified Altered mental status, unspecified Personal history of COVID-19 Mood disorder Thyroid disease History of traumatic head injury Seizures Gastroduodenitis without bleeding Anemia Hyperlipidemia Epilepsy Alcohol use Constipation Diabetes Traumatic brain injury Social History Social History (Updated 07/08/24 @ 12:21 by MAKENNA Ferrer) Alcohol intake: unknown Comment: EToH abuse hx Patient Tobacco Use Status: Never used Tobacco Meds Allergies Allergy/AdvReac Type Severity Reaction Status Date / Time No Known Allergies Allergy Verified 07/08/24 12:13 [No Known Allergies*] Home Medications ?Medication ?Instructions ?Recorded ?Confirmed ?Last Taken ?Type bisacodyl 10 mg rectal suppository 10 mg VT DAILY PRN Constipation 07/08/24 10/31/24 Unknown History divalproex 250 mg tablet,extended 250 mg PO BID 07/08/24 10/31/24 Unknown History release 24 hr dulaglutide 0.75 mg/0.5 mL mg subcut 07/08/24 Unknown History subcutaneous pen injector (Trulicity) folic acid 1 mg tablet 1 mg PO DAILY 07/08/24 10/31/24 Unknown History glucagon 1 mg solution for 1 mg subcut Q20M PRN Hypoglycemia 07/08/24 10/31/24 Unknown History injection lactulose 10 gram/15 mL oral 30 ml PO DAILY 07/08/24 10/31/24 Unknown History solution levetiracetam 1,000 mg tablet 1,000 mg PO BID 07/08/24 10/31/24 Unknown History levothyroxine 50 mcg capsule 50 mcg PO DAILY 07/08/24 10/31/24 Unknown History lisinopril 10 mg tablet 10 mg PO DAILY 07/08/24 10/31/24 Unknown History lorazepam 2 mg/mL injection 2 mg IV Q8M 07/08/24 10/31/24 Unknown History solution magnesium oxide 400 mg PO TID 07/08/24 10/31/24 Unknown History metformin 1,000 mg tablet 1,000 mg PO BID 07/08/24 10/31/24 Unknown History metoprolol tartrate 25 mg tablet 25 mg PO BID 07/08/24 10/31/24 Unknown History pen needle,diabetic dual safty 30 #100 ea 07/08/24 Unknown History gauge x 3/16 (BD AutoShield Duo Pen Needle) sennosides 8.6 mg tablet (Natural 8.6 mg PO DAILY PRN Constipation 07/08/24 10/31/24 Unknown History Senna Laxative) acetaminophen 325 mg tablet 650 mg PO Q6H PRN Pain 10/31/24 10/31/24 Unknown History divalproex 500 mg tablet,extended 500 mg PO BID 10/31/24 10/31/24 Unknown History release 24 hr ergocalciferol (vitamin D2) 1,250 1,250 mcg PO QWEEK 10/31/24 10/31/24 Unknown History mcg (50,000 unit) capsule ibuprofen 400 mg tablet 400 mg PO Q6H PRN Pain 10/31/24 10/31/24 Unknown History insulin aspart U-100 100 unit/mL subcut 10/31/24 Unknown History (3 mL) subcutaneous pen insulin degludec 100 unit/mL (3 20 unit subcut BID 10/31/24 10/31/24 Unknown History mL) subcutaneous pen (Tresiba FlexTouch U-100 insulin) Exam Height,Weight and Vital Signs: Height 5 ft 2 in Weight 80.739 kg Pertinent Lab Results Pertinent Lab Results: Laboratory Tests 07/08/24 13:31 WBC 10.2 Hgb 12.7 L Hct 38.9 L Plt Count 211 Sodium 141 Potassium 4.7 Chloride 107 Carbon Dioxide 27 BUN 16 Creatinine 1.03 Assessment and Plan Assessment Anesthesia Assessment: Chart Reviewed
--- OUTSIDE RECORDS SUMMARY | 2024-11-04 09:17 | XMS_ITS | Encounter Summary ---
Author Organization [facility] Address [address] [place] [address] Care Team Providers Care Career Development Facilitator Name Role Phone Grzegorz Wills MD Primary Care Provider Encounter Details Date Type Department Care Team (Late st Contact Info) Description 08/15/[address] [facility] - Main Lab [address] [place] [address] Grzegorz Wills MD [address] [place] [address] [address] [place], [place] Hypomagnesemia Social History Tobacco Use Types Packs/Day Years Used Date Smoking Tobacco: Never Assessed Sex and Gender Information Value Date Recorded Sex Assigned at Not on file Gender Identity Not on file Sexual Orientation Not on file documented as of this encounter Plan of Treatment Not on file documented as of this encounter Procedures Procedure Name Priority Date/Time Associated Diagnosis Comments MAGNESIUM Routine 08/15/2024 5:25 AM EST Hypomagnesemia documented in this encounter Results * (ABNORMAL) Magnesium (08/15/2024 5:25 AM EST) Magnesium 1.5(L) 1.9 - 2.6 mg/dL LAB CHEMISTRY METHOD 08/15/2024 6:[address] [facility] Blood Venous blood specimen / Unknown 08/15/2024 5:25 AM EST 08/15/2024 5:44 AM EST Grzegorz Wills MD LAB BLOOD ORDERABLES [facility] [address] [place] [address], documented in this encounter Visit Diagnoses Diagnosis Hypomagnesemia Disorders of magnesium metabolism documented in this encounter Care Teams Career Development Facilitator Relationship Specialty Start Date End Date Grzegorz Wills MD [address] [place] [address] Dr [address] MEY Haas PCP - General Internal Medicine 10/31/24 documented as of this encounter
--- OUTSIDE RECORDS SUMMARY | 2024-11-04 09:17 | XMS_ITS | Encounter Summary ---
Author Organization 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) Social History Tobacco Use Types Packs/Day Years Used Date Smoking Tobacco: Never Assessed Sex and Gender Information Value Date Recorded Sex Assigned at Not on file Gender Identity Not on file Sexual Orientation Not on file documented as of this encounter Plan of Treatment Not on file documented as of this encounter Procedures Procedure Name Priority Date/Time Associated Diagnosis Comments TRIIODOTHYRONINE FREE Routine 08/07/2024 5:50 AM EST 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) HEMOGLOBIN A1C Routine 08/07/2024 5:50 AM EST 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
--- OUTSIDE RECORDS SUMMARY | 2024-11-04 09:17 | XMS_ITS | Encounter Summary ---
Author Organization [facility] Address [address] [place] [address] Care Team Providers Care National Business Director Name Role Phone Grzegorz Wills MD Primary Care Provider [phone] Encounter Details Date Type Department Care Team (Late st Contact Info) Description 10/31/2024 Lab Requisition [facility] - Main Lab [address] [place] [address] Grzegorz Wills MD [address] [place] [address] [address] [place] Hyperlipidemia, unspecified; Alcohol dependence with withdrawal, uncomplicated (CMS/HCC) Social History Tobacco Use Types Packs/Day Years Used Date Smoking Tobacco: Never Assessed Sex and Gender Information Value Date Recorded Sex Assigned at Not on file Gender Identity Not on file Sexual Orientation Not on file documented as of this encounter Plan of Treatment Not on file documented as of this encounter Procedures Procedure Name Priority Date/Time Associated Diagnosis Comments LIPID PANEL WITH REFLEX TO DIRECT LDL Routine 10/31/2024 7:00 AM EST Alcohol dependence with withdrawal, uncomplicated (CMS/HCC) Hyperlipidemia, unspecified VALPROIC ACID LEVEL, TOTAL Routine 10/31/2024 7:00 AM EST Alcohol dependence with withdrawal, uncomplicated (CMS/HCC) Hyperlipidemia, unspecified documented in this encounter Results * Valproic acid level, total (10/31/2024 7:00 AM EST) Valproic Acid, Total 62 50 - 100 mcg/mL LAB CHEMISTRY METHOD 10/31/2024 9:30 AM EST [facility] Blood Venous blood specimen / Unknown 10/31/2024 7:00 AM EST 10/31/2024 8:04 AM EST Grzegorz Wills MD LAB BLOOD ORDERABLES [facility] [address] [place] [address], * (ABNORMAL) Lipid panel with reflex to direct LDL (10/31/2024 7:00 AM EST) Cholesterol 95 0 - 200 mg/dL LAB CHEMISTRY METHOD 10/31/2024 9:30 AM EST [facility] Triglycerides 108 0 - 150 mg/dL LAB CHEMISTRY METHOD 10/31/2024 9:30 AM EST [facility] HDL 32(L) >=40 mg/dL LAB CHEMISTRY METHOD 10/31/2024 9:30 AM EST [facility] LDL Calculated 41 0 - 100 mg/dL LAB CHEMISTRY METHOD 10/31/2024 9:30 AM [facility] VLDL Cholesterol Gian 21.6 mg/dL LAB CHEMISTRY METHOD 10/31/2024 9:30 AM EST [facility] Non HDL Chol. (LDL+VLDL) 63 <145 mg/dL LAB CHEMISTRY METHOD 10/31/2024 9:30 AM EST [facility] Chol/HDL Ratio 3.0 0.0 - 4.4 LAB CHEMISTRY METHOD 10/31/2024 9:30 AM EST [facility] Blood Venous blood specimen / Unknown 10/31/2024 7:00 AM EST 10/31/2024 8:04 AM EST Grzegorz Wills MD LAB BLOOD ORDERABLES [facility] [address] [place] [address], documented in this encounter Visit Diagnoses Diagnosis Hyperlipidemia, unspecified Alcohol dependence with withdrawal, uncomplicated (CMS/HCC) documented in this encounter Care Teams National Business Director Relationship Specialty Start Date End Date Grzegorz Wills MD [address] [facility] [place] [address] [place] PCP - General Internal Medicine 10/31/24 documented as of this encounter
--- OUTSIDE RECORDS SUMMARY | 2024-11-04 09:17 | XMS_ITS | Clinical Summary ---
Author Organization [address] [facility] Address [address] [place] [address] Phone Care Team Providers Care Scanner Supervisor Name Role Phone Grzegorz Wills MD Primary Care Provider [phone] Encounters Date Type Department Care Team Description 10/31/2024 Lab Requisition [facility] [address] [place] [phone] Grzegorz Wills MD Hyperlipidemia, unspecified; Alcohol dependence with withdrawal, uncomplicated (CMS/HCC) 09/17/2024 Lab Requisition [facility] [address] [place] [phone] Grzegorz Wills MD Type 2 diabetes mellitus without complications (CMS/HCC) 08/29/2024 Lab Requisition [facility] [address] [place] [phone] Grzegorz Wills MD 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); Thiamine deficiency, unspecified 08/15/2024 Lab Requisition [facility] [address] [place] [phone] Grzegorz Wills MD Hypomagnesemia 08/07/2024 Lab Requisition [facility] [address] [place] [phone] Grzegorz Wills MD 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) from Last 3 Months Social History Tobacco Use Types Packs/Day Years Used Date Smoking Tobacco: Never Assessed Sex and Gender Information Value Date Recorded Sex Assigned at Not on file Gender Identity Not on file Sexual Orientation Not on file Plan of Treatment Health Maintenance Due Date Last Done Comments Diabetes: Annual GFR (Glomerular Filtration Rate) 1972 Pneumococcal Vaccine: Pediatrics (0 to 5 Years) and At-Risk Patients (6 to 64 Years) (1 of 2 - PCV) 1978 Diabetes: Annual Foot Exam 1982 Diabetes: Annual Retina Eye Exam 1982 DTaP,Tdap,and Td Vaccines (1 - Tdap) 1991 Hepatitis B Vaccines (1 of 3 - 19+ 3-dose series) 1991 Zoster Vaccines (1 of 2) 2022 Colorectal Cancer Screening: Colonoscopy 09/03/2022 Depression Screening 09/03/2022 HIV Screening 09/03/2022 Hepatitis C Screening 09/03/2022 Medicare Annual Wellness Visit 09/03/2022 Social Influencers of Health Screening 09/03/2022 COVID-19 Vaccine ( - 2023-2 5 season) 2024 Influenza Vaccine (#1) 2024 Diabetes: Annual Urine Albumin-Creatinine Ratio (uACR) 09/17/2024 Diabetes: Blood Sugar Contro l Test (HGBA1C) 03/18/2025 09/17/2024, 08/07/2024 Cholesterol Screening (Lipid Panel) 10/31/2029 10/31/2024 HIB Vaccines Aged Out No longer eligi ble based on patient's age to complete this topic HPV Vaccines Aged Out No longer eligi ble based on patient's age to complete this topic Hepatitis A Vaccines Aged Out No long er eligible based on patient's age to complete this topic IPV Vaccines Aged Out No longer eligi ble based on patient's age to complete this topic MMR Vaccines Aged Out No longer eligi ble based on patient's age to complete this topic Meningococcal ACWY Vaccine Aged Out N o longer eligible based on patient's age to complete this topic RSV Immunization Patients Under 20 months Aged Out No longer eligible b ased on patient's age to complete this topic Varicella Vaccines Aged Out No longer eligible based on patient's age to complete this topic Procedures Procedure Name Priority Date/Time Associated Diagnosis Comments VALPROIC ACID LEVEL, TOTAL Routine 10/31/2024 7:00 AM EST Alcohol dependence with withdrawal, uncomplicated (CMS/HCC) Hyperlipidemia, unspecified LIPID PANEL WITH REFLEX TO DIRECT LDL Routine 10/31/2024 7:00 AM EST Alcohol dependence with withdrawal, uncomplicated (CMS/HCC) Hyperlipidemia, unspecified HEMOGLOBIN A1C Routine 09/17/2024 6:38 AM EST Type 2 diabetes mellitus without complications (CMS/HCC) MAGNESIUM Routine 08/29/2024 7:08 AM EST 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) Thiamine deficiency, unspecified MAGNESIUM Routine 08/15/2024 5:25 AM EST Hypomagnesemia TRIIODOTHYRONINE FREE Routine 08/07/2024 5:50 AM EST 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) HEMOGLOBIN A1C Routine 08/07/2024 5:50 AM EST 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) from Last 3 Months Results * (ABNORMAL) Lipid panel with reflex to direct LDL (10/31/2024 7:00 AM EST) Cholesterol 95 0 - 200 mg/dL LAB CHEMISTRY METHOD 10/31/2024 9:30 AM [facility] Triglycerides 108 0 - 150 mg/dL LAB CHEMISTRY METHOD 10/31/2024 9:30 AM [facility] HDL 32(L) >=40 mg/dL LAB CHEMISTRY METHOD 10/31/2024 9:30 AM [facility] LDL Calculated 41 0 - 100 mg/dL LAB CHEMISTRY METHOD 10/31/2024 9:30 AM [facility] VLDL Cholesterol Gian 21.6 mg/dL LAB CHEMISTRY METHOD 10/31/2024 9:30 AM [facility] Non HDL Chol. (LDL+VLDL) 63 <145 mg/dL LAB CHEMISTRY METHOD 10/31/2024 9:30 AM [facility] Chol/HDL Ratio 3.0 0.0 - 4.4 LAB CHEMISTRY METHOD 10/31/2024 9:30 AM [facility] Blood Venous blood specimen / Unknown 10/31/2024 7:00 AM EST 10/31/2024 8:04 AM EST Grzegorz Wills MD LAB BLOOD ORDERABLES Performing Organization Address [facility]/ZIP Co de Phone Number [facility] [address] [place] [address], [place] [phone] * Valproic acid level, total (10/31/2024 7:00 AM EST) [facility] Valproic Acid, Total 62 50 - 100 mcg/mL LAB CHEMISTRY METHOD 10/31/2024 9:30 AM EST [facility] Blood Venous blood specimen / Unknown 10/31/2024 7:00 AM EST 10/31/2024 8:04 AM EST Grzegorz Wills MD LAB BLOOD ORDERABLES Performing Organization Address [facility] Phone Number [facility] [address] [place] [address], [place] [phone] * (ABNORMAL) Hemoglobin A1c (09/17/2024 6:38 AM EST) Only the most recent of2 resultswithin the time period is included. [facility] Hemoglobin A1C 8.4(H) <6.5 % LAB CHEMISTRY METHOD 09/17/2024 9:57 AM EST [facility] Mean Bld Glu Estim. 194 mg/dL LAB CHEMISTRY METHOD 09/17/2024 9:57 AM EST [facility] Blood Venous blood specimen / Unknown 09/17/2024 6:38 AM EST 09/17/2024 7:22 AM EST Grzegorz Wills MD LAB BLOOD ORDERABLES Performing Organization Address [facility] Co de Phone Number [facility] [address] [place] [address], [place] [phone] * (ABNORMAL) Magnesium (08/29/2024 7:08 AM EST) Only the most recent of2 resultswithin the time period is included. Magnesium 1.3(L) 1.9 - 2.6 mg/dL LAB CHEMISTRY METHOD 08/29/2024 8:14 AM EST [facility] Blood Venous blood specimen / Unknown 08/29/2024 7:08 AM EST 08/29/2024 7:52 AM EST Grzegorz Wills MD LAB BLOOD ORDERABLES Performing Organization Address City/[facility]/ZIP Co de Phone Number [facility] [address] [place] [address], * Triiodothyronine free (08/07/2024 5:50 AM EST) T3, Free 330 230 - 420 pcg/dL LAB CHEMISTRY METHOD 08/07/2024 9:52 AM EST [facility] Blood Venous blood specimen / Unknown 08/07/2024 5:50 AM EST 08/07/2024 7:08 AM EST Grzegorz Wills MD LAB BLOOD ORDERABLES Performing Organization Address City/[facility]/ZIP Co de Phone Number [facility] [address] [place] [address], from Last 3 Months Care Teams Scanner Supervisor Relationship Specialty Start Date End Date Grzegorz Wills MD [address] [place] [address] [address] MEY Haas PCP - General Internal Medicine 10/31/24
--- OUTSIDE RECORDS SUMMARY | 2024-11-04 09:17 | XMS_ITS | Encounter Summary ---
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); Thiamine deficiency, unspecified Social History Tobacco Use Types Packs/Day Years Used Date Smoking Tobacco: Never Assessed Sex and Gender Information Value Date Recorded Sex Assigned at Not on file Gender Identity Not on file Sexual Orientation Not on file documented as of this encounter Plan of Treatment Not on file documented as of this encounter Procedures Procedure Name Priority Date/Time Associated Diagnosis Comments MAGNESIUM Routine 08/29/2024 7:08 AM EST 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) Thiamine deficiency, unspecified documented in this encounter Results * (ABNORMAL) Magnesium (08/29/2024 7:08 AM EST) Magnesium 1.3(L) 1.9 - 2.6 mg/dL LAB CHEMISTRY METHOD 08/29/2024 8:[address] [facility] Blood Venous blood specimen / Unknown 08/29/2024 7:08 AM EST 08/29/2024 7:52 AM EST Grzegorz Wills MD LAB BLOOD ORDERABLES [facility] [address] [place] [address], documented in this encounter Visit Diagnoses Diagnosis 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
--- OUTSIDE RECORDS SUMMARY | 2024-11-04 09:18 | XMS_ITS | Encounter Summary ---
Author Organization [facility] Address [address] [place] [address] Care Team Providers Care Ticket Machine Operator Name Role Phone Grzegorz Wills MD Primary Care Provider [phone] Encounter Details Date Type Department Care Team (Late st Contact Info) Description 09/17/[address] [facility] - [facility] Lab [address] [place] [address] Grzegorz Wills MD [address] [place] [address] [address] [place], [place] Type 2 diabetes mellitus without complications (CMS/HCC) Social History Tobacco Use Types Packs/Day Years Used Date Smoking Tobacco: Never Assessed Sex and Gender Information Value Date Recorded Sex Assigned at Not on file Gender Identity Not on file Sexual Orientation Not on file documented as of this encounter Plan of Treatment Not on file documented as of this encounter Procedures Procedure Name Priority Date/Time Associated Diagnosis Comments HEMOGLOBIN A1C Routine 09/17/2024 6:38 AM EST Type 2 diabetes mellitus without complications (CMS/HCC) documented in this encounter Results * (ABNORMAL) Hemoglobin A1c (09/17/2024 6:38 AM EST) Hemoglobin A1C 8.4(H) <6.5 % LAB CHEMISTRY METHOD 09/17/2024 9:57 AM EST [facility] Mean Bld Glu Estim. 194 mg/dL LAB CHEMISTRY METHOD 09/17/2024 9:57 AM EST [facility] Blood Venous blood specimen / Unknown 09/17/2024 6:38 AM EST 09/17/2024 7:22 AM EST Grzegorz Wills MD LAB BLOOD ORDERABLES [facility] [address] [place], [place] [address] [phone] documented in this encounter Visit Diagnoses Diagnosis Type 2 diabetes mellitus without complications (CMS/HCC) documented in this encounter Care Teams Ticket Machine Operator Relationship Specialty Start Date End Date Grzegorz Wills MD [address] [place] [address] Dr [address] [place], [place] PCP - General Internal Medicine 10/31/24 documented as of this encounter
[2024-11-04 09:47] VITALS: BMI 32.0
[2024-11-04 10:22] VITALS: BP 134/91; PULSE 63; RESP 15; TEMP 36.2; O2SAT 99
[2024-11-04] MEDS: Lactated Ringers 1,000 ML 100 ML IVCONT (10:23)
[2024-11-04 10:28] LABS: Glucose, Whole Blood 57 mg/dL (60-115)
[2024-11-04] MEDS: Dextrose 5 % 100 ML 20 ML IV (10:41)
--- NOTE | 2024-11-04 10:58 | MHC.SHP ---
Pre-Procedural Eval Section A - 24 Hr Update-Section A only Date of Service: 11/04/24 Section B - Complete if H&P > 30 days Chief Complaint: screening Details of Present Illness: PMX History of alcoholism Epilepsy Traumatic brain injury Hypertension High cholesterol Diabetes Hypothyroid Pre glaucoma Aphasia Constipation GERD * SURGICAL HISTORY * ALLERGIES:NKDA * [facility]: Present Medications: see Short Stay Collaborative assessment Allergies: Allergies Allergy/AdvReac Type Severity Reaction Status Date / Time No Known Allergies Allergy Verified 11/04/24 09:46 [No Known Allergies*] Review of Systems Review of Systems Comment: Ten point ROS negative Exam Exam Comment: Gen appear: No acute distress HEENT: no icterus Chest: No overt resp distress Abd: soft, nontender, nondistended Psych: Stable affect, answering questions appropriately Neuro: A/Ox3 noted to move all extremities spontaneously Ext: no peripheral edema Plan Diagnosis/Plan: Unchanged I have reviewed the history and physical and performed a pertinent physical examination on my patient. No changes have occurred unless specified. Time Spent With Patient Time: Total time managing care of this patient today ____ minutes.
--- NOTE | 2024-11-04 11:09 | HO.ANESPROP2 ---
[facility] Active Problems Active Problems: All Active Problems Pre-op examination (Acute) GERD (gastroesophageal reflux disease) (Acute) Aphasia (Acute) Hypothyroid (Acute) High cholesterol (Acute) Hypertension (Acute) Seizure disorder (Acute) History of alcoholism (Acute) Constipation (Acute) Diabetes (Acute) Traumatic brain injury (Acute) Past Medical History Medical History Thiamine deficiency, unspecified Preglaucoma, unspecified, bilateral Disorder of urea cycle metabolism, unspecified Altered mental status, unspecified Personal history of COVID-19 Mood disorder Thyroid disease History of traumatic head injury Seizures Gastroduodenitis without bleeding Anemia Hyperlipidemia Epilepsy Alcohol use Constipation Diabetes Traumatic brain injury Functional capacity: independent ambulation Family History Family history of problems with anesthesia: No Surgical History Surgical History History of surgery of head History of Problems with Anesthesia: No Social History Social History Alcohol intake: unknown Comment: EToH abuse hx Patient Tobacco Use Status: Never used Tobacco Use of substances other than those prescribed or required for medical reasons: No Are you DNR?: No Advance Directives: No Advance Directives Information Provided: Yes Meds Allergies Allergy/AdvReac Type Severity Reaction Status Date / Time No Known Allergies Allergy Verified 11/04/24 09:46 [No Known Allergies*] Active Medications: Current Medications Lactated Ringer's (Lr) 1,000 mls @ 100 mls/hr IVCONT .Q10H [facility] Last Admin: 11/04/24 10:23 Dose: 100 mls/hr Dextrose (D5w) 100 mls @ 0 mls/hr IV .Q0M PRN PRN Reason: Per Protocol Last Admin: 11/04/24 10:41 Dose: 20 mls/hr Home Medications ?Medication ?Instructions ?Recorded ?Confirmed ?Last Taken ?Type divalproex 250 mg tablet,extended 250 mg PO BID 07/08/24 10/31/24 11/04/24 History release 24 hr folic acid 1 mg tablet 1 mg PO DAILY 07/08/24 10/31/24 11/04/24 History glucagon 1 mg solution for 1 mg subcut Q20M PRN Hypoglycemia 07/08/24 10/31/24 Unknown History injection lactulose 10 gram/15 mL oral 30 ml PO DAILY 07/08/24 10/31/24 Unknown History solution levetiracetam 1,000 mg tablet 1,000 mg PO BID 07/08/24 10/31/24 11/04/24 History levothyroxine 50 mcg capsule 50 mcg PO DAILY 07/08/24 10/31/24 11/04/24 History lisinopril 10 mg tablet 10 mg PO DAILY 07/08/24 10/31/24 11/04/24 History lorazepam 2 mg/mL injection 2 mg IV Q8M 07/08/24 10/31/24 Unknown History solution magnesium oxide 400 mg PO TID 07/08/24 10/31/24 Unknown History metformin 1,000 mg tablet 1,000 mg PO BID 07/08/24 10/31/24 Unknown History metoprolol tartrate 25 mg tablet 25 mg PO BID 07/08/24 10/31/24 11/04/24 History pen needle,diabetic dual safty 30 #100 ea 07/08/24 Unknown History gauge x 3/16 (BD AutoShield Duo Pen Needle) sennosides 8.6 mg tablet (Natural 8.6 mg PO DAILY PRN Constipation 07/08/24 10/31/24 Unknown History Senna Laxative) acetaminophen 325 mg tablet 650 mg PO Q6H PRN Pain 10/31/24 10/31/24 Unknown History divalproex 500 mg tablet,extended 500 mg PO BID 10/31/24 10/31/24 11/04/24 History release 24 hr ergocalciferol (vitamin D2) 1,250 1,250 mcg PO QWEEK 10/31/24 10/31/24 Unknown History mcg (50,000 unit) capsule ibuprofen 400 mg tablet 400 mg PO Q6H PRN Pain 10/31/24 10/31/24 Unknown History insulin aspart U-100 100 unit/mL subcut 10/31/24 Unknown History (3 mL) subcutaneous pen insulin degludec 100 unit/mL (3 20 unit subcut BID 10/31/24 10/31/24 Unknown History mL) subcutaneous pen (Tresiba FlexTouch U-100 insulin) aspirin 81 mg tablet,delayed 81 mg PO DAILY 11/04/24 11/04/24 Unknown History release Exam Height,Weight and Vital Signs: Height 5 ft 2 in Weight 79.379 kg Last Vital Signs Temp 97.2 F 11/04/24 10:22 Pulse 63 11/04/24 10:22 Resp 15 11/04/24 10:22 BP 134/91 H 11/04/24 10:22 Pulse Ox 99 11/04/24 10:22 O2 Del Method Room Air 11/04/24 10:22 Pertinent Lab Results Pertinent Lab Results: Laboratory Tests 11/04/24 10:20 POC Glucose 57 L* Airway Mallampati Class: II TM Dist: >3cm Heart: RRR Lungs: CTA Assessment and Plan Assessment Anesthesia Assessment: Anesthesia Plan Discussed, Smoking Cess. Discussed and Chart Reviewed Final Anesthetic Review Family History of Problems with Anesthesia: No History of Problems with Anesthesia: No NPO: Yes ASA Class: III Final Preanesthetic Review: Meds/Allgs Chart Reviewed, Consent Obtained/Reviewed and Anes Risks/Benef Reviewed Patient Risk: Intermediate Procedure Risk: Low Anesthetic Plan Anesthetic Plan: MAC: Disposition: Standard PACU
--- NOTE | 2024-11-04 11:40 | P.OPN-COLO_ITS ---
Colonoscopy Operative Note Operative Note Date of Service: 11/04/24 Narrative: Procedure: Colonoscopy Indication: Screening Endoscopist: Deonna Flanagan MD Anesthesia Provider: Dr Maru Lopez Anesthesia type: MAC Instrument: Olympus [id number]-[id number] Consent: Indication, risks vs benefits, and alternatives were discussed with the patient who gave written informed consent to proceed. EKG, pulse, pulse oximetry and blood pressure were monitored throughout the procedure. Please see anesthesia flowsheet. Procedure: The patient was brought to the procedure room and placed in the left lateral decubitus position. IV medications were administered by the anesthesia provider in attendance. A digital rectal exam was performed which was abnormal for external hemorrhoids. A distal attachment cap was affixed to the tip of the colonoscope which was then inserted through the anus and advanced through the colon to the cecum at 75 cm,and terminal ileum. Appendiceal orifice and ileocecal valve were identified. Mucosa was carefully examined under high definition white light as the instrument was slowly withdrawn in a retrograde panoramic fashion. Retroflexion was performed in rectum. The procedure was not difficult. There were no immediate obvious complications. The quality of the prep was BBPS: 3+3+3 = excellent Withdrawal time 9 minutes. Limitations: No limitations. Findings: Mucosa: Normal to cecum and terminal ileum. Protruding lesions: * Medium internal hemorrhoids without stigmata of recent bleeding. Impression: 1. Normal colon and terminal ileum mucosa 2. External and internal hemorrhoids Recommendations: - Repeat colonoscopy for asymptomatic colorectal cancer screening in 10 years. - Follow up in GI office PRN.
[2024-11-04 11:43] VITALS: BP 85/48; PULSE 62; RESP 16; TEMP 36.1; O2SAT 96
[2024-11-04 11:55] VITALS: BP 102/71; PULSE 62; RESP 16; O2SAT 98
[2024-11-04 12:10] VITALS: BP 147/96; PULSE 59; RESP 16; O2SAT 98
[2024-11-04 12:25] VITALS: BP 144/91; PULSE 59; RESP 16; O2SAT 98
--- NOTE | 2024-11-04 12:45 | HO.POSTANES ---
Post Anesthesia Evaluation Post Anesthesia Evaluation Date of Service: 11/04/24 Vital Signs: Vital Signs Temp Pulse Resp BP Pulse Ox O2 Del Method 11/04/24 12:25 59 16 144/91 H 98 Room Air 11/04/24 12:10 59 16 147/96 H 98 Room Air 11/04/24 11:55 62 16 102/71 98 Room Air 11/04/24 11:43 97 F 62 16 85/48 L 96 Room Air 11/04/24 10:22 97.2 F 63 15 134/91 H 99 Room Air Anesthesia: Monitored Mental Status: Awake Pain Control: Satisfactory Nausea/Vomiting: None Hydration: Adequate Anesthesia-Related Issues: No Anes. Related Issues
== END 2024-11-04 12:55 | disposition home or self-care (01) ==
PROVIDERS: PCP Hospitalist; Visit Provider Internal Medicine
PROC: 0DJD8ZZ Inspection of Lower Intestinal Tract, Via Natural or Artificial Opening Endoscopic (ICD-10-PCS; CPT 45378; principal; 2024-11-04 09:40)
DX: Z12.11 Encounter for screening for malignant neoplasm of colon (principal); K64.8 Other hemorrhoids; K64.4 Residual hemorrhoidal skin tags; K59.00 Constipation, unspecified; K29.90 Gastroduodenitis, unspecified, without bleeding; K21.9 Gastro-esophageal reflux disease without esophagitis; G40.909 Epilepsy, unspecified, not intractable, without status epilepticus; Z87.820 Personal history of traumatic brain injury; R47.01 Aphasia; I10 Essential (primary) hypertension; D64.9 Anemia, unspecified; E78.00 Pure hypercholesterolemia, unspecified; E11.9 Type 2 diabetes mellitus without complications; E03.9 Hypothyroidism, unspecified; H40.003 Preglaucoma, unspecified, bilateral; Z79.4 Long term (current) use of insulin; Z79.84 Long term (current) use of oral hypoglycemic drugs; Z79.85 Long-term (current) use of injectable non-insulin antidiabetic drugs; Z79.1 Long term (current) use of non-steroidal anti-inflammatories (NSAID); Z79.899 Other long term (current) drug therapy; F10.21 Alcohol dependence, in remission
CPT/HCPCS: G0121; 82947; J2003; J2704

== ENCOUNTER → 2024-11-04 08:58 | Outpatient (BNV) | payer MEDICARE, SELFPAY | PROVIDERS: PCP Hospitalist; Visit Provider Internal Medicine | DX: Z12.11 Encounter for screening for malignant neoplasm of colon (principal); K64.8 Other hemorrhoids | CPT/HCPCS: G0121 ==